=== PATIENT | female | born 2005 | race American Indian/Alaskan Native ===

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

== ENCOUNTER 2023-01-02 10:10 | Emergency (ER) | payer BC ==
[2023-01-02] MEDS ORDERED: Lactated Ringers 1,000 ML IV SCH (11:30)
[2023-01-02 11:39] LABS: APPEARANCE,URINE SLT CLOUDY (Clear); BILIRUBIN,URINE NEGATIVE (Negative); COLOR,URINE YELLOW (Yellow); GLUCOSE,URINE NEGATIVE (Negative); KETONES,URINE NEGATIVE (Negative); LEUKOCYTE ESTERASE,URINE 2+ (Negative); NITRITE,URINE POSITIVE (Negative); OCCULT BLOOD,URINE NEGATIVE (Negative); PROTEIN,URINE 1+ (Negative); UROBILINOGEN,URINE 0.2 (0.2-1.0)
[2023-01-02 11:41] LABS: CORONAVIRUS COVID-19 NAA NEGATIVE (NEGATIVE); INFLUENZA A NAA NEGATIVE (NEGATIVE)
[2023-01-02 11:42] LABS: BASOPHILS PERCENT AUTO 0.4 % (0.0-1.0); EOSINOPHILS ABSOLUTE AUTO 0.3 K/mm3 (0.0-0.7); HEMATOCRIT 36.4 % (37.0-47.0); HEMOGLOBIN 12.4 gm/dl (12.0-16.0); IMMATURE GRAN ABSOLUTE AUTO 0.02 K/mm3 (0.00-0.05); IMMATURE GRAN PERCENT AUTO 0.2 % (0.0-0.4); LYMPHOCYTES ABSOLUTE AUTO 1.3 K/mm3 (2.0-8.8); LYMPHOCYTES PERCENT AUTO 12.5 % (50.0-65.0); MEAN CORPUSCULAR HEMOGLOBIN 30.5 pg (28.0-32.0); MEAN CORPUSCULAR HGB CONC 34.1 g/dl (32.0-36.0); MEAN CORPUSCULAR VOLUME 89.4 fl (83.0-99.0); MEAN PLATELET VOLUME 9.7 fl (9.4-12.3); MONOCYTES ABSOLUTE AUTO 0.8 K/mm3 (0.1-1.4); MONOCYTES PERCENT AUTO 7.4 % (2.0-10.0); NEUTROPHILS ABSOLUTE AUTO 7.7 K/mm3 (1.5-8.5); NEUTROPHILS PERCENT AUTO 76.5 % (35.0-45.0); PLATELET COUNT,PLT 196 K/mm3 (150-400); RED BLOOD CELL COUNT 4.07 M/mm3 (4.10-5.30); WHITE BLOOD CELL COUNT,WBC 10.11 K/mm3 (4.5-13.5)
[2023-01-02 11:51] LABS: EPITHELIAL CELLS,URINE 20-30 /hpf (0-5); RBC,URINE 0-5 /hpf (0-5)
[2023-01-02 11:52] LABS: BACTERIA,URINE MANY /hpf (FEW); MUCUS,URINE FEW /hpf (FEW)
[2023-01-02 12:01] LABS: A/G RATIO 0.7 (1-2); ALBUMIN 3.1 g/dl (3.4-5.0); ANION GAP 14.5 (5-15); BILIRUBIN TOTAL 0.2 mg/dL (0.2-1.0); BUN/CREATININE RATIO 8.8 (14-18); C-REACTIVE PROTEIN 4.3 mg/dL (<1.0); CALCIUM 9.4 mg/dL (8.5-10.1); CREATININE 0.8 mg/dL (0.55-1.02); EST CRCL DRUG DOSING (CG) 101.78 mL/min; POTASSIUM,K 3.5 mEq/L (3.5-5.1); PROTEIN TOTAL,TP 7.9 g/dl (6.4-8.2)
[2023-01-02 13:25] LABS: APPEARANCE,URINE CLEAR (Clear); BILIRUBIN,URINE NEGATIVE (Negative); COLOR,URINE YELLOW (Yellow); GLUCOSE,URINE NEGATIVE (Negative); KETONES,URINE NEGATIVE (Negative); LEUKOCYTE ESTERASE,URINE 1+ (Negative); NITRITE,URINE NEGATIVE (Negative); OCCULT BLOOD,URINE NEGATIVE (Negative); PH,URINE 5.5 (5.0-8.0); PROTEIN,URINE NEGATIVE (Negative); UROBILINOGEN,URINE 0.2 (0.2-1.0)
[2023-01-02 13:46] LABS: BACTERIA,URINE MODERATE /hpf (FEW); RBC,URINE NOT SEEN /hpf (0-5)
[2023-01-02 13:47] LABS: MUCUS,URINE FEW /hpf (FEW)
[2023-01-02] MEDS ORDERED: cefTRIAXone 1 GM in Sodium Chloride 0.9% 100 ML IV ONE (14:34)
[2023-01-02] MEDS ORDERED: Sodium Chloride 0.9% 1,000 ML IV ONE (14:36)
[2023-01-02] MEDS ORDERED: Sodium Chloride 0.9% 1,000 ML ONE (14:38)
== END 2023-01-02 16:37 | disposition home or self-care (01) ==
LOC: JD.ED 10:10
DX: O23.40 Unspecified infection of urinary tract in pregnancy, unspecified trimester (principal); Z20.822 Contact with and (suspected) exposure to COVID-19; Z3A.00 Weeks of gestation of pregnancy not specified
CPT/HCPCS: 0240U; 36415; 80053; 81001; 85025; 86140; 87086; 87088; 87186; 96361; 96365; 99284; J0696; J3490; J7030; J7120; 99283

== ENCOUNTER 2024-01-16 06:15 | Emergency (ER) | payer BC, MEDICAID ==
[2024-01-16 06:31] LABS: BASE EXCESS VENOUS -4.9 (-4.0-2.0); BICARBONATE,VENOUS 19.3 meq/L (22-26); O2 SATURATION VENOUS 75.6; PH,VENOUS 7.36 (7.30-7.40)
[2024-01-16 06:32] LABS: BASOPHILS ABSOLUTE AUTO 0.1 K/mm3 (0.0-0.2); BASOPHILS PERCENT AUTO 0.9 % (0.0-1.0); EOSINOPHILS ABSOLUTE AUTO 0.2 K/mm3 (0.0-0.4); EOSINOPHILS PERCENT AUTO 4.4 % (0.0-6.0); HEMATOCRIT 35.4 % (37.0-47.0); HEMOGLOBIN 10.8 gm/dl (12.0-16.0); IMMATURE GRAN ABSOLUTE AUTO 0.01 K/mm3 (0.00-0.05); IMMATURE GRAN PERCENT AUTO 0.2 % (0.0-0.4); LYMPHOCYTES ABSOLUTE AUTO 2.5 K/mm3 (1.0-4.8); LYMPHOCYTES PERCENT AUTO 47.5 % (24.0-44.0); MEAN CORPUSCULAR HEMOGLOBIN 23.1 pg (28.0-32.0); MEAN CORPUSCULAR HGB CONC 30.5 g/dl (32.0-36.0); MEAN CORPUSCULAR VOLUME 75.8 fl (83.0-99.0); MEAN PLATELET VOLUME 9.3 fl (9.4-12.3); MONOCYTES ABSOLUTE AUTO 0.6 K/mm3 (0.0-0.8); NEUTROPHILS ABSOLUTE AUTO 1.9 K/mm3 (1.8-7.7); RED BLOOD CELL COUNT 4.67 M/mm3 (4.10-5.30); WHITE BLOOD CELL COUNT,WBC 5.28 K/mm3 (3.9-11.3)
[2024-01-16 06:38] LABS: PLATELET COUNT,PLT 311 K/mm3 (150-400)
[2024-01-16 07:06] LABS: A/G RATIO 0.8 (1-2); ALBUMIN 3.7 g/dl (3.4-5.0); ANION GAP 17.3 (5-15); BILIRUBIN TOTAL 0.3 mg/dL (0.2-1.0); BUN/CREATININE RATIO 16.3 (14-18); CALCIUM 9.3 mg/dL (8.5-10.1); CREATININE 0.8 mg/dL (0.55-1.02); EST CRCL DRUG DOSING (CG) 100.94 mL/min; ETHANOL BLOOD MEDICAL 0.07 gm% (0.00); POTASSIUM,K 3.3 mEq/L (3.5-5.1); PROTEIN TOTAL,TP 8.1 g/dl (6.4-8.2)
[2024-01-16 07:58] LABS: APPEARANCE,URINE SLT CLOUDY (Clear); BILIRUBIN,URINE NEGATIVE (Negative); COLOR,URINE YELLOW (Yellow); GLUCOSE,URINE NEGATIVE (Negative); KETONES,URINE NEGATIVE (Negative); LEUKOCYTE ESTERASE,URINE NEGATIVE (Negative); NITRITE,URINE NEGATIVE (Negative); OCCULT BLOOD,URINE NEGATIVE (Negative); PROTEIN,URINE NEGATIVE (Negative); UROBILINOGEN,URINE 0.2 (0.2-1.0)
[2024-01-16 08:07] LABS: BARBITURATE SCREEN,URINE NEGATIVE (CUTOFF=200); BENZODIAZEPINES SCREEN,URINE NEGATIVE (CUTOFF=150); BUPRENORPHINE SCREEN,URINE NEGATIVE (CUTOFF=10); METHADONE SCREEN, URINE NEGATIVE (CUTOFF=200); METHAMPHETAMINES SCREEN, URINE NEGATIVE (CUTOFF=500); OXYCODONE SCREEN,URINE NEGATIVE (CUT0FF=100); THC SCREEN,URINE 20 NG/ML NEGATIVE (CUTOFF=50)
[2024-01-16 08:19] LABS: BACTERIA,URINE FEW /hpf (FEW); EPITHELIAL CELLS,URINE 0-5 /hpf (0-5); MUCUS,URINE FEW /hpf (FEW); RBC,URINE 0-5 /hpf (0-5); WBC,URINE 0-5 /hpf (0-5)
[2024-01-16 08:20] LABS: AMPHETAMINES SCREEN, URINE NEGATIVE (CUTOFF=500)
[2024-01-16] MEDS: Sodium Chloride 0.9% 1,000 ML IV SCH (10:53)
[2024-01-16] MEDS: Ondansetron 4 MG/2 ML SDV IVPUSH ONE (11:08)
[2024-01-16] MEDS: LORazepam 2 MG/ML SDV IVPUSH ONE ×3 (14:58→21:36)
[2024-01-16] MEDS: LORazepam 2 MG/ML SDV IVPUSH PRN (15:34)
[2024-01-16 21:07] LABS: BASOPHILS ABSOLUTE AUTO 0.1 K/mm3 (0.0-0.2); BASOPHILS PERCENT AUTO 0.6 % (0.0-1.0); EOSINOPHILS ABSOLUTE AUTO 0.1 K/mm3 (0.0-0.4); EOSINOPHILS PERCENT AUTO 0.5 % (0.0-6.0); HEMATOCRIT 36.2 % (37.0-47.0); HEMOGLOBIN 11.1 gm/dl (12.0-16.0); IMMATURE GRAN ABSOLUTE AUTO 0.04 K/mm3 (0.00-0.05); IMMATURE GRAN PERCENT AUTO 0.3 % (0.0-0.4); LYMPHOCYTES ABSOLUTE AUTO 2.2 K/mm3 (1.0-4.8); LYMPHOCYTES PERCENT AUTO 18.6 % (24.0-44.0); MEAN CORPUSCULAR HEMOGLOBIN 23.3 pg (28.0-32.0); MEAN CORPUSCULAR HGB CONC 30.7 g/dl (32.0-36.0); MEAN CORPUSCULAR VOLUME 75.9 fl (83.0-99.0); MEAN PLATELET VOLUME 9.6 fl (9.4-12.3); MONOCYTES PERCENT AUTO 8.4 % (0.0-8.0); NEUTROPHILS ABSOLUTE AUTO 8.4 K/mm3 (1.8-7.7); NEUTROPHILS PERCENT AUTO 71.6 % (41.0-71.0); PLATELET COUNT,PLT 314 K/mm3 (150-400); RED BLOOD CELL COUNT 4.77 M/mm3 (4.10-5.30); WHITE BLOOD CELL COUNT,WBC 11.72 K/mm3 (3.9-11.3)
[2024-01-16 21:30] LABS: ALBUMIN 4.3 g/dl (3.4-5.0); ANION GAP 18.9 (5-15); BILIRUBIN TOTAL 0.4 mg/dL (0.2-1.0); CALCIUM 9.8 mg/dL (8.5-10.1); CREATININE 0.9 mg/dL (0.55-1.02); EST CRCL DRUG DOSING (CG) 89.72 mL/min; POTASSIUM,K 3.9 mEq/L (3.5-5.1); PROTEIN TOTAL,TP 8.5 g/dl (6.4-8.2)
[2024-01-16] MEDS: Dextrose 5%-0.45% NaCl 1,000 ML IV SCH (23:39)
[2024-01-17 09:08] LABS: TSH 1.324 uIU/mL (0.516-4.13)
== END 2024-01-17 10:00 ==
LOC: JD.ED 06:15
DX: T45.0X2A Poisoning by antiallergic and antiemetic drugs, intentional self-harm, initial encounter (principal)
CPT/HCPCS: 36415; 70450; 80053; 80143; 80179; 80306; 80307; 81001; 82140; 82803; 83605; 83735; 84443; 84703; 85025; 87428; 93005; 96361; 96374; 96375; 96376; 99285; J2060; J2405; J7030; J7799

== ENCOUNTER 2024-08-12 06:42 | Emergency (ER) | payer BC, MEDICAID ==
[2024-08-12 07:34] LABS: BASOPHILS ABSOLUTE AUTO 0.0 K/mm3 (0.0-0.2); BASOPHILS PERCENT AUTO 0.3 % (0.0-1.0); EOSINOPHILS ABSOLUTE AUTO 0.2 K/mm3 (0.0-0.4); EOSINOPHILS PERCENT AUTO 2.0 % (0.0-6.0); IMMATURE GRAN ABSOLUTE AUTO 0.04 K/mm3 (0.00-0.05); IMMATURE GRAN PERCENT AUTO 0.4 % (0.0-0.4); LYMPHOCYTES ABSOLUTE AUTO 0.5 K/mm3 (1.0-4.8); LYMPHOCYTES PERCENT AUTO 5.0 % (24.0-44.0); MEAN PLATELET VOLUME 9.8 fl (9.4-12.3); MONOCYTES ABSOLUTE AUTO 0.5 K/mm3 (0.0-0.8); MONOCYTES PERCENT AUTO 4.4 % (0.0-8.0); NEUTROPHILS ABSOLUTE AUTO 9.6 K/mm3 (1.8-7.7); NEUTROPHILS PERCENT AUTO 87.9 % (41.0-71.0); NRBC ABSOLUTE 0.00 (0.00-0.02); NRBC PERCENT 0.0 % (0.0-0.2); PLATELET COUNT,PLT 257 K/mm3 (150-400); RED BLOOD CELL COUNT 5.04 M/mm3 (4.10-5.30); WHITE BLOOD CELL COUNT,WBC 10.90 K/mm3 (3.9-11.3)
[2024-08-12] MEDS: Ondansetron 4 MG/2 ML SDV IVPUSH ONE (07:36)
[2024-08-12] MEDS: Ketorolac 30 MG/ML SDV IVPUSH ONE (07:38)
[2024-08-12 07:41] LABS: INR 1.12
[2024-08-12 07:44] LABS: A/G RATIO 0.8 (1-2); ALANINE AMINOTRANSFERASE,ALT 19.0 U/L (14-59); ASPARTATE AMNIOTRANSFERASE,AST 11.0 U/L (15-37); BILIRUBIN TOTAL 0.6 mg/dL (0.2-1.0); BLOOD UREA NITROGEN,BUN 9.0 mg/dL (7-18); CARBON DIOXIDE,CO2 23.0 mEq/L (21-32); CHLORIDE,CL 103.0 mEq/L (98-107); CREATINE KINASE,CK 61.0 U/L (26-192); CREATININE 0.8 mg/dL (0.55-1.02); EST CRCL DRUG DOSING (CG) 100.94 mL/min; ESTIMATED GFR 108.0 mL/min (>60); GLUCOSE RANDOM 99.0 mg/dL (70-99); POTASSIUM,K 3.5 mEq/L (3.5-5.1); PROTEIN TOTAL,TP 8.4 g/dl (6.4-8.2); SODIUM,NA 138.0 mEq/L (136-145)
[2024-08-12] MEDS: Dexamethasone 4 MG/ML SDV IVPUSH ONE (07:45)
[2024-08-12] MEDS: Sodium Chloride 0.9% 10 ML Syringe FLUSH ONE (08:51)
[2024-08-12] MEDS: Iopamidol 755 Mg/ML 100 ML Bottle IVPUSH ONE (08:51)
== END 2024-08-12 09:49 | disposition critical access hospital (66) ==
LOC: JD.ED 06:42
DX: J03.90 Acute tonsillitis, unspecified (principal); L02.91 Cutaneous abscess, unspecified; Z79.899 Other long term (current) drug therapy
CPT/HCPCS: 36415; 70491; 80053; 82550; 85025; 85610; 96374; 96375; 99285; J0696; J1100; J1885; J2405; Q9967